=== PATIENT | male | born 1995 | race Caucasian/White ===

== ENCOUNTER 2018-10-03 22:15 | Emergency (ER) | payer BC ==
[2018-10-03 22:33] VITALS: BP 123/57; TEMP 98.5
[2018-10-03] MEDS ORDERED: NEXIUM 40MG40 MG PO (22:36)
[2018-10-03] MEDS ORDERED: NORCO 325 MG-51 TAB PO (23:37)
[2018-10-03] MEDS ORDERED: AMOXICILLIN 8751 TAB PO (23:37)
[2018-10-03 23:57] VITALS: PULSE 78
== END 2018-10-03 23:58 | disposition home or self-care (01) ==
LOC: COL.ER 22:15
DX: K60.1 Chronic anal fissure (principal); L03.316 Cellulitis of umbilicus; K21.9 Gastro-esophageal reflux disease without esophagitis; Z79.1 Long term (current) use of non-steroidal anti-inflammatories (NSAID)

== ENCOUNTER 2018-10-09 20:11 | Emergency (ER) | payer BC ==
[~2018-10-09] VITALS: Ht 190.5 cm; Wt 88.6 kg
[~2018-10-09 20:11] MED LIST changes: -ANUSOL-HC2.5% RC
[2018-10-09 20:22] VITALS: BP 110/54; TEMP 98.4
[2018-10-09] MEDS ORDERED: ANUSOL-HC2.5% RC (20:56)
[2018-10-09 21:10] VITALS: PULSE 74
== END 2018-10-09 21:12 | disposition home or self-care (01) ==
LOC: COL.ER 20:11
DX: K62.89 Other specified diseases of anus and rectum (principal); K60.2 Anal fissure, unspecified

== ENCOUNTER → 2018-10-09 | Outpatient (CLI) | payer BC ==
[~2018-10-09] MED LIST: AMOXICILLIN 8751 TAB PO; ANUSOL-HC2.5% RC; NEXIUM 40MG40 MG PO; NORCO 325 MG-51 TAB PO
== END ==
LOC: ZCOL.LAB 11:54
DX: L03.316 Cellulitis of umbilicus (principal)

== ENCOUNTER 2018-11-02 00:26 | Emergency (ER) | payer BC ==
[~2018-11-02] VITALS: Ht 190.5 cm; Wt 88.6 kg
[~2018-11-02 00:26] MED LIST changes: +ANUSOL-HC2.5% RC
[2018-11-02 00:36] VITALS: BP 121/62; PULSE 72; TEMP 97.2
[2018-11-02] MEDS ORDERED: FLEXERIL 1010 MG/TAB PO (01:21)
== END 2018-11-02 01:44 | disposition home or self-care (01) ==
LOC: COL.ER 00:26
DX: S39.012A Strain of muscle, fascia and tendon of lower back, initial encounter (principal); F17.210 Nicotine dependence, cigarettes, uncomplicated; Z98.84 Bariatric surgery status; Z87.442 Personal history of urinary calculi; X50.0XXA Overexertion from strenuous movement or load, initial encounter

== ENCOUNTER 2018-11-28 08:22 | Emergency (ER) | payer BC ==
[~2018-11-28] VITALS: Ht 190.5 cm; Wt 91.3 kg
[~2018-11-28 08:22] MED LIST changes: +FLEXERIL 1010 MG/TAB PO
[2018-11-28 08:26] VITALS: TEMP 98.5
[2018-11-28 08:53] LABS: COLLECTION METHOD CLEAN CATCH
[2018-11-28 08:59] LABS: MUCOUS Present /lpf; PH 6 (5-8); SQUAMOUS EPITHELIAL 0-2 /hpf; URINE APPEARANCE Clear; URINE BACTERIA None Seen /hpf; URINE BILIRUBIN Negative (NEGATIVE); URINE BLOOD Negative (NEGATIVE); URINE COLOR Yellow; URINE GLUCOSE Negative (NEGATIVE); URINE KETONE Negative (NEGATIVE); URINE LEUKOCYTE ESTERASE Negative (NEGATIVE); URINE NITRATE Negative (NEGATIVE); URINE PROTEIN(semi-quant) Negative (NEGATIVE); URINE RBC 0-2 /hpf
[2018-11-28] MEDS ORDERED: AMOXICILLIN 8751 TAB PO (10:49)
[2018-11-28 11:07] VITALS: BP 109/68; PULSE 67
== END 2018-11-28 11:10 | disposition home or self-care (01) ==
LOC: COL.ER 08:22
PROVIDERS: Nurse Practitioner
DX: L03.316 Cellulitis of umbilicus (principal); F17.290 Nicotine dependence, other tobacco product, uncomplicated; Z98.84 Bariatric surgery status; Z87.442 Personal history of urinary calculi
CPT/HCPCS: J1885; J2405; J7030; Q9967